=== PATIENT | female | born 1950 | race Caucasian/White ===

== ENCOUNTER → 2016-12-24 | Outpatient (CLI) | payer MEDICARE, OTHER ==
[~2016-12-24] MED LIST: FUROSEMIDE40 MG PO; IBUPROFEN800 MG PO; LOSARTAN POTAS100 MG PO; NEXIUM40 MG/PACK PO; SERTRALINE25 MG PO; SINGULAIR 10 MG10 MG PO; ZOLPIDEM5 MG PO
--- NOTE | 2016-12-24 13:58 | RADIOLOGY REPORT PS360 ---
US THYROID HISTORY: Follow-up thyroid nodules THYROID NODULE ORDERING PHYSICIAN: Elsa Powers APRN PATIENT AGE: 66 years COMPARISON: 10/06/2015 FINDINGS: Right lobe: 4.3 x 1.6 x 1.4 cm. There remains vague decreased echogenicity in the posterior aspect of the right lobe of the thyroid gland without discrete margins not signally change from an older exam of 01/11/2015. 3 mm cyst is present in the lower pole. Left lobe: 3.9 x 1.5 x 1.5 cm. Isthmus: Mildly thickened at 4 mm IMPRESSION: Stable appearance of the thyroid gland. Vague decreased echogenicity on the right posteriorly similar to 01/11/2015 exam. This area was not demonstrated on the most recent exam of 10/06/2015 probably related to technical factors.
== END ==
LOC: RAD 09:48
DX: E04.1 Nontoxic single thyroid nodule (principal)